=== PATIENT | male | born 1975 | race Caucasian/White ===

== ENCOUNTER 2024-08-25 20:08 | Emergency (ER) | payer SELFPAY ==
[~2024-08-25] VITALS: Ht 170.2 cm; Wt 63.4 kg
--- NOTE | 2024-08-25 20:34 | ED.PDOC ---
History of Present Illness HPI Comments pt admittedly used meth this morning, subsequent to this, he felt paranoid that the police was looking for him, so he showed up in front of the sheriif's office and called 911. Chief Complaint: Detox Clearance Time Seen by MD: 20:12 Reviewed Notes: Nurses Notes, Practical Nursing Instructor Notes Allergies: Coded Allergies: NO KNOWN ALLERGIES (Unverified , 08/25/24) Information Source: Patient, Emergency Med Personnel Mode of Arrival: Ambulatory Severity: Mild Timing: Hours Duration: Since onset Past Medical History PAST MEDICAL HISTORY: Denies Surgical History: Denies all surgeries Family History Family History: Reviewed,noncontributory to illness, No family hx of Cancer, No family hx of DM, No family hx of Heart tacho, No family hx of HTN, No family hx ofKidney tacho, No family hx of Liver tacho, No family hx of Lung tacho, No family hx of Stroke Social History Smoker: Non-Smoker Alcohol: Denies ETOH Use Drugs: Methamphetamine Lives In: Home Constitutional: denies: chills, diaphoresis, fatigue, fever, malaise, sweats, weakness, others EENTM: denies: blurred vision, double vision, ear bleeding, ear discharge, ear drainage, ear pain, ear ringing, eye pain, eye redness, hearing loss, mouth pain, mouth swelling, nasal discharge, nose bleeding, nose congestion, nose pain, photophobia, tearing, throat pain, throat swelling, voice changes, others Respiratory: denies: cough, hemoptysis, orthopnea, SOB at rest, shortness of breath, SOB with excertion, stridor, wheezing, others Cardiovascular: denies: chest pain, dizzy spells, diaphoresis, Dyspnea on exertion, edema, irregular heart beat, left arm pain, lightheadedness, palpit ations, PND, syncope, others Gastrointestinal: denies: abdomen distended, abdominal pain, blood streaked b owels, constipated, diarrhea, dysphagia, difficulty swallowing, hematemesis, melena, nausea, poor appetite, poor fluid intake, rectal bleeding, rectal pain, vomiting, others Genitourinary: denies: burning, dysuria, flank pain, frequency, hematuria, incontinence, penile discharge, penile sore, pain, testicle pain, testicle swelling, urgency, others Neurological: denies: dizziness, fainting, headache, left sided numbness, left sided weakness, numbness, paresthesia, pre-existing deficit, right sided numbness, right sided weakness, seizure, speech problems, tingling, tremors, weakness, others Musculoskeletal: denies: back pain, gout, joint pain, joint swelling, muscle pain, muscle stiffness, neck pain, others Integumetry: denies: bruises, change in color, change in hair/nails, dryness, laceration, lesions, lumps, rash, wounds, others Allergic/Immunocompromised: denies: Difficulty Healing, Frequent Infections, Hives, Itching, others Hematologic/Lymphatic: denies: anemia, blood clots, easy bleeding, easy bruisi ng, swollen glands, others Endocrine: denies: excessive hunger, excessive sweating, excessive thirst, exce ssive urination, flushing, intolerance to cold, intolerance to heat, unexplained weight gain, unexplained weight loss, others Psychiatric: reports: anxiety; denies: bipolar disorder, depression, hopeless, panic disorder, schizophrenia, sleepless, suicidal, others All Other Systems: Reviewed and Negative Physical Exam General Appearance: No Apparent Distress, Normal HEENT: Normal ENT Inspection, Pharynx Normal, TMs Normal Neck: Full Range of Motion, Non-Tender, Normal, Normal Inspection Respiratory: Chest Non-Tender, Lungs Clear, No Accessory Muscle Use, No Respiratory Distress, Normal Breath Sounds Cardiovascular: No Edema, No JVD, No Murmur, No Gallop, Normal Peripheral Pulses, Regular Rate/Rhythm Breast Exam: Deferred Gastrointestinal: No Organomegaly, Non Tender, No Pulsatile Mass, Normal Bowel Sounds, Soft Genitalia: Deferred Pelvic: Deferred Rectal: Deferred Extremities: No calf tenderness, Normal capillary refill, Normal inspection, Normal range of motion, Non-tender, No pedal edema Musculoskeletal : Apperance: Normal Neurologic: Alert, tap dancer II-XII nml as Tested, No Motor Deficits, Normal Affect, Normal Mood, No Sensory Deficits Cerebellar Function: Normal Reflexes: Normal Skin: Dry, Normal Color, Warm Lymphatic: No Adenopathy Was a procedure done? Was a procedure done?: No Differential Dx Considerations may include: substance abuse, schizophrenia, paranoia, acute psychosis, kristen X-Ray, Labs, Meds, VS Vital Signs Date Time Temp Pulse Resp B/P (MAP) Pulse Ox O2 Delivery O2 Flow Rate FiO2 6/28/25 21:29 99.4 08/25/24 21:29 99.4 99 18 97 99.4 08/25/24 20:45 100.7 08/25/24 20:38 110 21 95 Room Air 08/25/24 20:38 100.7 110 21 137/89 (105) 95 100.7 08/25/24 20:15 99.1 120 20 131/95 (107) 99 99.1 Current Medications Medications (Trade) Dose Ordered Sig/Malena Route Start Time Stop Time Status Last Admin Alprazolam (Xanax Tablet) 0.25 mg ONCE ONCE PO 08/25/24 20:30 08/25/24 20:31 DC 08/25/24 20:45 Acetaminophen (Tylenol Tablet Or Capsule) 1,000 mg ONCE ONCE PO 08/25/24 20:45 08/25/24 20:46 DC 08/25/24 20:45 Sodium Chloride 1,000 ml @ 1,000 mls/hr Q1H ONCE IV 08/25/24 20:45 08/25/24 21:44 08/25/24 20:54 Time of 1ST Reevaluation: 21:44 Reevaluation 1ST: Improved Patient Education/Counseling: Diagnosis, Treatment, Prognosis, Need For Follow Up Family Education/Counseling: No Family Present Comments pt is much calmer and with normalized VSS after benzo was given. he has been counselled about drug use and needs to quit. he is stable for discharge SEPSIS Sepsis Screen Physician Orders Sodium Chloride 0.9% (08/25/24 20:45) Saline Lock (08/25/24 20:45) Vital Signs Date Time Temp Pulse Resp B/P (MAP) Pulse Ox O2 Delivery O2 Flow Rate FiO2 08/25/24 21:29 99.4 08/25/24 21:29 99.4 99 18 97 99.4 08/25/24 20:45 100.7 08/25/24 20:38 110 21 95 Room Air 08/25/24 20:38 100.7 110 21 137/89 (105) 95 100.7 08/25/24 20:15 99.1 120 20 131/95 (107) 99 99.1 Medications Medications Dose Ordered Sig/Malena Route Start Time Stop Time Status Last Admin Dose Admin Acetaminophen 1,000 mg ONCE ONCE PO 08/25/24 20:45 08/25/24 20:46 DC 08/25/24 20:45 Alprazolam 0.25 mg ONCE ONCE PO 08/25/24 20:30 08/25/24 20:31 DC 08/25/24 20:45 Sodium Chloride 1,000 ml @ 1,000 mls/hr Q1H ONCE IV 08/25/24 20:45 08/25/24 21:44 08/25/24 20:54 Reassessment Post Fluid SEPSIS FOCUS EXAM(REASSESSMENT Sepsis Exclusion Note: Patient presents with SIRS criteria, but the SIRS response is attributed to [methamphetamine abuse ], not a suspected infection. Sepsis bundle is not initiated at this time, due to this reason. Further management will focus on the treatment of the above condition (s). Departure 1 Departure Time of Disposition: 21:45 Impression: Primary Impression: Methamphetamine use disorder, mild, abuse Additional Impressions: Paranoia Anxiety Disposition: HOME / SELF CARE / HOMELESS Condition: Good Discharged With: Self Critical Care Note Critical Care Time?: Yes (55 min-critical care time only) Critical care comment: Due to concerns for patients condition deteriorating, the care required my highest level of attention and readiness to intervene. I assessed the patient, reviewed the medical records, ordered the appropriate tests and treatments, then reassessed for results and responsiveness. I communicated with medical personnel and consultants and formulated a plan of care. Total critical care time excludes any procedures Stability Stability form required: RAFI Ponce MD Aug 25, 2024 20:34
[2024-08-25] MEDS: ALPRAZolam 0.25 MG TAB PO ONE (20:45)
[2024-08-25] MEDS: ACETAMINOPHEN 500 MG TAB or CAP PO ONE (20:45)
[2024-08-25] MEDS: SODIUM CHLORIDE 0.9% 1,000 ML IV ONE (20:54)
[2024-08-26 00:15] VITALS: BP 140/96; PULSE 85; RESP 16; TEMP 97.7; O2SAT 97
== END 2024-08-26 00:15 | disposition home or self-care (01) ==
LOC: EDBD 20:08 → ER 20:08
DX: F15.10 Other stimulant abuse, uncomplicated (principal); F41.9 Anxiety disorder, unspecified; F22 Delusional disorders
CPT/HCPCS: 96360; 99283; J7030